=== PATIENT | male | born 1960 | race Caucasian/White ===

== ENCOUNTER 2019-10-07 11:43 | Emergency (ER) | payer OTHER, SELFPAY ==
[2019-10-07 11:52] VITALS: BP 175/104; PULSE 81; RESP 16; TEMP 37; O2SAT 98
--- NOTE | 2019-10-07 11:52 | ED.SKABFB ---
HPI - Skin/Abscess/Foreign Bdy General Chief complaint: Skin/Abscess/Foreign Body Stated complaint: rash on stomach and legs Time Seen by Provider: 10/07/19 11:53 Source: patient and RN notes reviewed History of Present Illness HPI narrative: Patient is 58-year-old male who presents the urgent care with complaints of a itchy red rash to the lower abdomen and bilateral upper legs. Patient states he noticed it approximately 2 to 3 days ago initially just on the stomach and now to the upper legs. Patient has not used anything [id number] to the area. 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 Patient states he does change his clothing if it becomes very saturated. No other acute complaints. Denies of any new products, lotions, creams, detergents. No acute distress noted. Patient read the plan of care. Related Data Allergies Allergy/AdvReac Type Severity Reaction Status Date / Time No Known Allergies Allergy Verified 10/07/19 12:04 Review of Systems Review of Systems: Narrative: CONSTITUTIONAL: Denies fever, chills, or sweats. EYES: Denies visual changes, redness, or discharge. ENT: Denies rhinorrhea, congestion, sore throat, or otalgia. CARDIOVASCULAR: Denies chest pain, palpitations, or edema. RESPIRATORY: Denies cough or dyspnea. GASTROINTESTINAL: Denies abdominal pain, nausea, vomiting, or diarrhea. GENITOURINARY: Denies dysuria or hematuria. SKIN: Reports of a rash to abdomen and bilateral legs MUSCULOSKELETAL: Denies back pain, joint pain, or myalgia. NEUROLOGIC: Denies headache, numbness, or weakness. All other systems reviewed are negative, except as documented in HPI. PMFSH Comments At the time of my signature, I reviewed and agree with the nursing past medical, surgical, social, and family history. There is no relevant family history pertinent to the patient complaint. Exam Narrative: Exam Narrative: GENERAL: This is a well-nourished, well-developed patient, in no apparent distress. HEAD: normocephalic, atraumatic. EYES: PERRL. Sclera clear/white. Vision is grossly intact. EARS: External ears normal NOSE: External nose normal with no obvious nasal discharge, nares without redness, no rhinorrhea. THROAT: Mucous membranes moist NECK: Neck supple SKIN: Raised erythemic dermatitis noted to the medial aspect of the right and left upper thigh and lower abdomen NEURO: awake, alert, and oriented to person, place and time. There were no obvious focal neurologic abnormalities. EXTREMITIES: No clubbing, cyanosis, or edema. Course Vital Signs Vital signs: Vital Signs Temperature 98.6 F 10/07/19 11:52 Pulse Rate 81 10/07/19 11:52 Respiratory Rate 16 10/07/19 11:52 Blood Pressure 175/104 H 10/07/19 11:52 Pulse Oximetry 98 10/07/19 11:52 Temperature 98.6 F 10/07/19 11:52 Pulse Rate 81 10/07/19 11:52 Respiratory Rate 16 10/07/19 11:52 Blood Pressure 175/104 H 10/07/19 11:52 Pulse Oximetry 98 10/07/19 11:52 Reviewed?patient is informed that they may have pre-hypertension or hypertension based on a blood pressure reading in the department. I recommend the patient call the primary care provider listed on their discharge instructions or a physician of their choice this week to arrange follow-up for further evaluation of possible pre-hypertension or hypertension. repeat BP 152/90, 77HR MDM - Skin/Abscess/Foreign Bdy MDM Narrative Medical decision making narrative: Advised the patient to use prescription cream to the areas as directed. Avoid underarms, face and directly to the groin. Keep the area very dry using community case manager if necessary. Change any wet clothing. Wear loose clothing. If you develop any increase in dermatitis/rash, follow-up with your doctor. You need to follow-up with your primary care physician YARI due to elevated blood pressure. Differential Diagnosis Differential diagnosis: Likely abscess of skin or subcutaneous tissue, urticaria, celluliti
[2019-10-07 12:15] VITALS: BP 152/90; PULSE 77
== END 2019-10-07 12:15 | disposition home or self-care (01) ==
PROVIDERS: Emergency Provider Nurse Practitioner Family
DX: B36.9 Superficial mycosis, unspecified (principal); I10 Essential (primary) hypertension
CPT/HCPCS: 99213; G0463